=== PATIENT | female | born 1975 | race Two or more races ===

== ENCOUNTER 2018-03-05 16:58 | Emergency (ER) | payer MEDICAID ==
[2018-03-05 17:33] LABS: % BASOPHILS 1.1 % (0.0-2.0); % EOSINOPHILS 2.4 % (0.0-5.0); % LYMPHOCYTES 19.9 % (20.0-50.0); % MONOCYTES 9.8 % (2.0-10.0); % NEUTROPHILS 66.8 % (40.0-80.0); BASOPHILE ABSOLUTE 0.1 Th/cumm (0-0.2); EOSINOPHILE ABSOLUTE 0.2 Th/cmm (0.1-0.4); HEMATOCRIT 25.6 % (41.0-60); LYMPHOCYTE ABSOLUTE 1.3 Th/cmm (1.5-3.0); MEAN CORPUSCULAR HEMOGLOBIN 19.3 pg (27.0-31.0); MEAN CORPUSCULAR HGB CONC 31.1 pg (28.0-36.0); MEAN PLATELET VOLUME 7.8 fl; MONOCYTE ABSOLUTE 0.6 Th/cmm (0.3-1.0); NEUTROPHILE ABSOLUTE 4.3 Th/cmm (1.8-8.0); PLATELET COUNT 515 Th/cmm (150-400); RED BLOOD COUNT 4.13 Mil/cmm (3.80-5.10); RED CELL DISTRIBUTION WIDTH 19.7 % (11.5-20.0); WHITE BLOOD COUNT 6.5 Th/cmm (4.8-10.8)
[2018-03-05 17:52] LABS: ALB/GLOB RATIO 1.2 (1.0-1.8); ALBUMIN 3.5 gm/dL (3.7-5.3); ALKALINE PHOSPHATASE 46 U/L (34-104); ANION GAP 10.1 (7.0-16.0); BILIRUBIN,TOTAL 0.3 mg/dL (0.3-1.0); BUN - UREA NITROGEN 12 mg/dL (7-25); CALCIUM SERUM 9.4 mg/dL (8.6-10.3); CARBON DIOXIDE 23.9 mEq/L (21.0-31.0); CHLORIDE 105 mEq/L (98-107); CREATININE - SERUM 0.9 mg/dL (0.6-1.2); GFR AFRICAN-AMERICAN > 60.0 ml/min (>90); GFR NON AFRICAN-AMERICAN > 60.0 ml/min; GLUCOSE 90 mg/dL (70-105); MAGNESIUM 1.8 mg/dL (1.9-2.7); PHOSPHOROUS 3.4 mg/dL (2.5-5.0); SGOT 22 U/L (13-39); SGPT/ALT 17 U/L (7-52); SODIUM SERUM 135 mEq/L (136-145); TOTAL PROTEIN,SERUM 6.5 gm/dL (6.0-8.3)
--- NOTE | 2018-03-05 17:59 | ED Physician Chart ---
ED Chief Complaint/HPI - Patient Information Date Seen:: 03/05/18 Time Seen:: 17:09 Chief Complaint:: dizziness and weakness History of Present Illness:: dizziness and weakness. Told that she was anemic at [facility]. Allergies:: Allergies Allergy/AdvReac Type Severity Reaction Status Date / Time No Known Allergies Allergy Verified 03/05/18 17:09 Vitals:: Vital Signs - 8 hr 03/05/18 17:09 Temp 98.1 F HR 82 RR 16 BP 125/81 O2 Sat % 98 ED Review of Systems - Review of Systems General/Constitutional: Weakness Skin: No skin lesions, No rash, No bruising Head: No headache, No light-headedness Eyes: No loss of vision, No pain, No diplopia ENT: No earache, No nasal drainage, No sore throat, No tinnitus Neck: No neck pain, No swelling, No thyromegaly, No stiffness, No mass noted Cardio Vascular: No chest pain, No palpitations, No PND, No orthopnea, No edema Pulmonary: No SOB, No cough, No sputum, No wheezing GI: Nausea, No vomiting, No diarrhea, No pain, No melena, No hematochezia, No constipation, No hematemesis G/U: No dysuria, No frequency, No hematuria Musculoskeletal: No bone or joint pain, No back pain, No muscle pain Endocrine: No polyuria, No polydipsia Psychiatric: No prior psych history, No depression, No anxiety, No suicidal ideation Hematopoietic: No bruising, No lymphadenopathy Allergic/Immuno: No urticaria, No angioedema Neurological: No syncope, No focal symptoms, Weakness, No paresthesia, No headache, No seizure, No dizziness, No confusion, No vertigo Family Medical History - Family Member Mother History Unknown: Yes ED Physical Exam - Physical Examination General/Constitutional: Awake, Well-developed, well-nourished, Alert, No distress, GCS 15, Non-toxic appearing, Ambulatory Other Gen/Cons comments:: pale appearing. frowns regularly. Head: Atraumatic Eyes: Lids, conjuctiva normal, PERRL, EOMI Skin: Nl inspection, No rash, No skin lesions, No ecchymosis, Well hydrated, No lymphadenopathy ENMT: External ears, nose nl, Nasal exam nl, Lips, teeth, gums nl Neck: Nontender, Full ROM w/o pain, No JVD, No nuchal rigidity, No bruit, No mass, No stridor Respiratory: Nl effort/Exclusion, Clear to Auscultation, No Wheeze/Rhonchi/Rales Cardio Vascular: RRR, No murmur, gallop, rubs, NL S1 S2 GI: No tenderness/rebounding/guarding, No organomegaly, No hernia, Normal BS's, Nondistended, No mass/bruits, No McBurney tenderness : No CVA tenderness Extremities: No tenderness or effusion, Full ROM, normal strength in all extremities, No edema, Normal digits & nails Neuro/Psych: Alert/oriented, Normal sensory exam, Normal motor strength, Judgement/insight normal, Mood normal, Normal gait, No focal deficits Misc: Normal back, No paraspinal tenderness ED Assessment - Assessment General Assessment: EKG from 17:30:31 p.m.: normal sinus rhythm, low voltage in precordial leads, flipped t wave in III. orthostatics within normal limits. ED Septic Shock - . Is Septic Shock (SBP<90, OR Lactate>4 mmol\L) present?: No - <6hrs of presentation: Vital Signs: Vital Signs - 8 hr 18 17:09 Temp 98.1 F HR 82 RR 16 BP 125/81 O2 Sat % 98 ED Reassessment (Disposition) - Reassessment Reassessment Condition:: Improved - Diagnosis Diagnosis:: anemia weakness - Aftercare/Follow up Instructions Medication Prescribed:: has already
[2018-03-05] MEDS ORDERED: IOHEXOL 350mgI/mL 100mL Bottle IVP ONE (18:22)
--- NOTE | 2018-03-06 09:05 | Diagnostic Imaging Report ---
CT Chest PE Study Indication: Shortness of breath, positive D dimer Comparison: None, Technique: Axial images were obtained from the base of the neck to the upper abdomen, following administration of IV contrast, PE protocol. Multiplanar reconstructions were made. total DLP: 297, [id number] FINDINGS: There is no evidence of mediastinal lymphadenopathy. No evidence of an aortic aneurysm. Assessment of the aortic root is limited due to pulsating artifact. Otherwise no evidence of a dissection. Heart size is at the upper limits of normal. No pericardial effusion. Assessment of the pulmonary arterial vasculature is limited due to technical factors. No central pulmonary embolus is identified. Evaluation of the pulmonary parenchyma demonstrates no focal consolidation or effusions. 3 mm calcified nodule of the right upper lobe is noted. Atelectatic changes are noted. The upper abdomen demonstrates nonvisualization of the right kidney. Small hiatal hernia is noted. Food -filled stomach is noted. The osseous structures demonstrate no acute abnormalities. IMPRESSION: No central pulmonary emboli. Evaluation of distal subsegmental pulmonary embolus was suboptimal on this exam. No focal consolidation identified 3 mm granuloma the right upper lobe. Nonvisualization of the right kidney. Please correlate with clinical and surgical history. Small hiatal hernia.
== END 2018-03-05 19:35 | disposition home or self-care (01) ==
LOC: ER 16:58
DX: D64.9 Anemia, unspecified (principal); R53.1 Weakness
CPT/HCPCS: 99285; 96374; 93005; 71275; 84484; 86900; 86850; 36415; 86901; 85379; 85025; 84703; 83735; 84100; 80053; Q9967; J2405